=== PATIENT | male | born 1940 | race Caucasian/White ===

== ENCOUNTER 2016-09-28 08:14 | Observation (INO) | payer MEDICARE, OTHER ==
[2016-09-28] MEDS ORDERED: DIATRIZOATE MEGLU/DIATRIZO SOD 30 ML BTL PO ONE (09:03)
[2016-09-28] MEDS ORDERED: ONDANSETRON HCL/PF 2 MG/ML VIAL IV ONE ×2 (09:03→13:11)
[2016-09-28] MEDS ORDERED: KETOROLAC TROMETHAMINE 30 MG/ML VIAL IV ONE (09:03)
--- NOTE | 2016-09-28 09:09 | ERNOTE ---
Abdominal HPI - General Chief Complaint: Abdominal Pain Time Seen by Provider: 09/28/16 08:52 Source: patient Exam Limitations: no limitations - Immun/Allergies/Home Medications Immunizatons: IMMUNIZATION HX Immunizations Up to Date Yes History of Influenza Vaccine Yes Hx Pneumococcal Vaccination Yes Allergies/Adverse Reactions: Allergies Penicillins Allergy (Verified 09/28/16 08:38) Hives Home Medications: HOME MEDICATIONS NK [No Home Medication] 09/28/16 [Last Taken Unknown] - History of Present Illness Narrative: Patient started to have lower abdominal pain yesterday afternoon, the pain waxes and wanes, but never goes away. He describes it at burning, currently at 3 /10, max to 8/10, no aggravating or alleviating factors. He vomited twice, once yesterday and once this morning around 06:00, no po intake since, no diarrhea, small BM yesterday. He has no chronic medical problems, no prior abdominal surgeries Date (Duration): 09/27/16 Quality: burning Activities at Onset: none Modifying Factors - (Improves): Absent: lying down Modifying Factors - (Worsens): Absent: breathing, coughing, defecating, eating, movement, vomiting Associated Symptoms: Present: denies symptoms. Absent: chest pain, diarrhea- gross blood, fever/chills, shortness of breath Prior Abdominal Problems: Present: none Review of Systems - Review of Systems Constitutional: Absent: recent illness, fever ENT: Absent: sore throat Respiratory: Absent: shortness of breath, cough Cardiology: Absent: chest pain Gastrointestinal/Abdominal: Present: See HPI Genitourinary: Present: no symptoms reported. Absent: frequency, dysuria Musculoskeletal: Absent: back pain Neurological: Absent: headache - Patient's Past Medical History Patient History - Medical: No pertinent hx Patient History - Cardiac/Respiratory: No pertinent hx Patient History - Cancer: No Hx of Cancer Patient History - Surgical Procedures: T & A Patient History - Other: None - Social History Living Situations: home Abuse History: No History of abuse Psych History: No pertinent hx - Immunizations Immunizations Up to Date: Yes Hx Pneumococcal Vaccination: Yes History of Influenza Vaccine: Yes Physical Exam - Physical Exam General Appearance: Present: wd/wn, alert, no apparent distress Respiratory: Present: no respiratory distress, normal breath sounds, no accessory muscle use, lungs clear Cardiovascular/Chest: Present: regular rate, rhythm, no murmur Gastrointestinal/Abdominal: Present: normal bowel sounds, nondistended, soft, tenderness - RLQ, McBurney sign, Psoas sign. Absent: Obturator sign Male Genitals Exam: Present: normal genitalia, other - right sided inguinal hernia, non reducible and tender Back Exam: Present: no CVA tenderness Neurological Exam: Present: alert, oriented, normal mood/affect Skin Exam: Present: normal color, warm/dry ED Progress - Results and Orders Patient's Lab Results:: I have reviewed the patient's lab results. - Vital Signs Patient's Vital Signs:: I have reviewed the patient's vital signs. Vital Signs: Vital Signs 09/28/16 08:25 Temperature 36.9 C Pulse Rate 96 Respiratory 13 Rate Blood Pressure 158/94 O2 Sat by Pulse 93 Oximetry - CT/Ultrasound CT/Ultrasound Narrative: CT abdomen:appendix not visualized, right inguinal hernia with focal small bowel obstruction - Progress/Reassessment Chief Complaint: Abdominal Pain Progress Note-Subjective: 09/28/16 09:50 patient vomited initially with contrast, after zofran now tolerating po discussed lab results 09/28/16 12:[address] results with radiologist 09/28/16 12:15 discussed results with patient and family 09/28/16 12:[address] Mathew, will review images and see patient 09/28/16 13:13 patient is requesting pain medication now, 09/28/16 13:36 patient very comfortable after morphine 2mg Departure - Departure Clinical Impression: Incarcerated right inguinal hernia Disposition: [facility] Condition: Good
[2016-09-28 09:17] LABS: Hematocrit 49.4 % (42.0-52.0); Mean Cell Volume 89.2 fl (78-100); Mean Corpuscular Hemoglobin 30.7 pg (27-31); Mean Corpuscular Hgb Conc 34.4 g/dl (32-36); Mean Platelet Volume 9.5 fl (6.0-9.5); Neutrophil # 13.3 K/mm3 (1.3-6.0); Neutrophil % 84.8 % (42-75.0); Platelet Count 263 K/mm3 (150-450); Red Blood Count 5.54 M/mm3 (4.7-6.0); Red Cell Distribution Width 12.2 % (11.5-14.0); White Blood Count 15.7 K/mm3 (4.0-10.5)
[2016-09-28 09:29] LABS: Albumin * 4.5 gm/dl (3.4-5.0); Anion Gap 13.1 mmol/L (6.8-13.8); BUN/Creatinine Ratio 10.3 (9.0-21.6); Bilirubin, Total 0.7 mg/dL (0.0-1.1); Ca. Corrected For Albumin 9.2 mg/dL (8.4-10.2); Calcium * 9.9 mg/dL (7.9-10.9); Carbon Dioxide 27.9 mmol/L (24-32.6); Total Protein 8.2 gm/dL (6.2-8.2)
[2016-09-28] MEDS ORDERED: ONDANSETRON HCL/PF 2 MG/ML VIAL ONE ×2 (09:32→13:12)
[2016-09-28] MEDS ORDERED: KETOROLAC TROMETHAMINE 30 MG/ML VIAL ONE (09:33)
[2016-09-28] MEDS ORDERED: NORMAL SALINE 1,000 ML IV ONE (09:48)
[2016-09-28 11:06] LABS: Urine Bilirubin Negative (NEGATIVE); Urine Blood 25 /ul (NEGATIVE); Urine Ketone Negative (NEGATIVE); Urine Nitrite Negative (NEGATIVE); Urine Protein 30 mg/dL (NEGATIVE); Urine Specific Gravity 1.025 SP.GR. (1.005-1.030); Urine Urobilinogen Normal (NORMAL)
[2016-09-28 11:25] LABS: Urine Appearance Clear; Urine Bacteria TRACE; Urine Color Dark Yellow; Urine Mucus Many - 3+; Urine WBC 0-5 /hpf (0-5)
[2016-09-28] MEDS ORDERED: MORPHINE SULFATE 2 MG/ML DISP.SYRIN IV ONE (13:11)
[2016-09-28] MEDS ORDERED: MORPHINE SULFATE 2 MG/ML DISP.SYRIN ONE (13:12)
[2016-09-28] MEDS ORDERED: ceFAZolin SODIUM 2 GM in DEXTROSE 5 % IN WATER 50 ML IV PRN ×2 (13:22)
--- NOTE | 2016-09-28 13:37 | HP ---
Chief Complaint - Chief Complaint Date of Service: 09/28/16 Time of Service: 13:26 Chief Complaint: abdominal pain History of Present Illness: Started with lower abdominal pain yesterday with belching. Was evaluated in ER and found to have small bowel obstruction with incarcerated right inguinal hernia. - Patient's Past Medical History Patient History - Medical: No pertinent hx Patient History - Cardiac/Respiratory: No pertinent hx Patient History - Cancer: No Hx of Cancer Patient History - Surgical Procedures: T & A Patient History - Other: None - Family History Family History:: no untoward family reactions to anesthesia, no familial bleeding tendencies - Social History Living Situations: home Abuse History: No History of abuse Psych History: No pertinent hx - Immunizations Immunizations Up to Date: Yes Hx Pneumococcal Vaccination: Yes History of Influenza Vaccine: Yes Review Of Systems (GEN) - Review of Systems Generalized/Overall Review: Present: No Symptoms Reported EENTM: Present: No Symptoms Reported Respiratory: Present: No Symptoms Reported Cardiac: Present: No Symptoms Reported. Absent: Chest Pain, Edema, Palpitations Abdominal: Present: Nausea, Vomiting, Abdominal Pain Genitourinary: Present: No Symptoms Reported Musculoskeletal: Present: No Symptoms Reported Neurological: Present: No Symptoms Reported Skin: Present: No Symptoms Reported Endocrine: Present: No Symptoms Reported Immunizations: IMMUNIZATION HX Immunizations Up to Date Yes History of Influenza Vaccine Yes Hx Pneumococcal Vaccination Yes Allergies/Adverse Reactions: Allergies Allergy/AdvReac Type Severity Reaction Status Date / Time Penicillins Allergy Hives Verified 09/28/16 08:38 Home Medications: HOME MEDICATIONS NK [No Home Medication] 09/28/16 [Last Taken Unknown] Exam - Exam Vital Signs: Vital Signs - Last Taken Temp 36.9 C 09/28/16 08:25 Pulse 93 09/28/16 12:26 Resp 12 09/28/16 12:26 BP 171/96 09/28/16 12:26 Pulse Ox 100 09/28/16 12:26 Constitutional: Present: Alert, Oriented x3, Cooperative, Well nourished, Mild distress ENT Exam: Present: normal ENT inspection, hard of hearing Eye Exam: bilateral eye: normal inspection Neck: Present: full range of motion, normal inspection Back Exam: Present: no CVA tenderness Respiratory: Present: lungs clear, normal breath sounds Cardiovascular/Chest: Present: normal peripheral pulses, regular rate, rhythm Peripheral Pulses: carotid (R): 4+, carotid (L): 4+, dorsalis-pedis (R): 4+, dorsalis-pedis (L): 4+, radial (R): 4+, radial (L): 4+ Abdomen: Present: other - No abdominal tenderness. Incarcerated right inguinal hernia. Reducible left inguinal hernia Extremity: Present: normal range of motion, normal inspection, no pedal edema, no calf tenderness Skin Exam: Present: normal color Neurologic: Present: entry clerk II-XII nml as tested, normal cerebellar test, no motor/ sensory deficits Appearance: Present: appropriate appearance, appropriate insight, neat Eye contact: Present: cooperative, good eye contact, normal speech Thoughts: Present: normal thought pattern Diagnostic Studies: Abnormal Lab Results 09/28/16 09/28/16 09/28/16 Range/Units 09:10 09:10 10:59 WBC 15.7 H (4.0-10.5) K/mm3 Immature Gran # (Auto) 0.05 H (0.000-0.0310) K/mm3 Neutrophils % 84.8 H (42-75.0) % Lymphocytes % 7.4 L (20-51) % Neutrophils # 13.3 H (1.3-6.0) K/mm3 Lymphocytes # 1.2 L (1.5-3.5) k/mm3 Monocytes # 1.1 H (0.0-1.0) k/mm3 Sodium 143 H (132-142) mmol/L Plasma Sodium 143 H (130-142) mmol/L Random Glucose 118 H (70-110) mg/dL Urine Protein 30 H (NEGATIVE) mg/dL Urine Blood 25 H (NEGATIVE) /ul Urine RBC 5-10 H (0-5) /hpf Urine Mucus Many - 3+ H (NONE) Laboratory Results WBC 15.7 K/mm3 (4.0-10.5) H 09/28/16 09:10 RBC 5.54 M/mm3 (4.7-6.0) 09/28/16 09:10 Hgb 17.0 gm/dL (13.5-18.0) 09/28/16 09:10 Hct 49.4 % (42.0-52.0) 09/28/16 09:10 MCV 89.2 fl (78-100) 09/28/16 09:10 MCH 30.7 pg (27-31) 09/28/16 09:10 MCHC 34.4 g/dl (32-36) 09/28/16 09:10 RDW 12.2 % (11.5-14.0) 09/28/16 09:10 Plt Count 263 K/mm3 (150-450) 09/28/16 09:10 MPV 9.5 fl (6.0-9.5) 09/28/16 09:10 Immature Gran % (Auto) 0.30 % (0.001-0.429) 09/28/16 09:10 Immature Gran # (Auto) 0.05 K/mm3 (0.000-0.0310) H 09/28/16 09:10 Neutrophils % 84.8 % (42-75.0) H 09/28/16 09:10 Lymphocytes % 7.4 % (20-51) L 09/28/16 09:10 Monocytes % 6.7 % (0.0-9) 09/28/16 09:10 Eosinophils % 0.4 % (0.0-3.0) 09/28/16 09:10 Basophils % 0.4 % (0.0-1.0) 09/28/16 09:10 Nucleated RBC % 0.0 k/mm3 (0-1) 09/28/16 09:10 Neutrophils # 13.3 K/mm3 (1.3-6.0) H 09/28/16 09:10 Lymphocytes # 1.2 k/mm3 (1.5-3.5) L 09/28/16 09:10 Monocytes # 1.1 k/mm3 (0.0-1.0) H 09/28/16 09:10 Eosinophils # 0.1 k/mm3 (0.0-0.7) 09/28/16 09:10 Absolute Basophils 0.1 k/mm3 (0.0-0.1) 09/28/16 09:10 Sodium 143 mmol/L (132-142) H 09/28/16 09:10 Plasma Sodium 143 mmol/L (130-142) H 09/28/16 09:10 Potassium 4.0 mmol/L (3.4-4.6) 09/28/16 09:10 Chloride 106 mmol/L (97-106) 09/28/16 09:10 Carbon Dioxide 27.9 mmol/L (24-32.6) 09/28/16 09:10 Anion Gap 13.1 mmol/L (6.8-13.8) 09/28/16 09:10 BUN 12 mg/dL (6-23) 09/28/16 09:10 Creatinine 1.16 mg/dL (0.4-1.4) 09/28/16 09:10 Est GFR (Non-Af Amer) 65 mL/min (60-130) 09/28/16 09:10 BUN/Creatinine Ratio 10.3 (9.0-21.6) 09/28/16 09:10 Random Glucose 118 mg/dL (70-110) H 09/28/16 09:10 Calcium 9.9 mg/dL (7.9-10.9) 09/28/16 09:10 Calcium Adj for Albumin 9.2 mg/dL (8.4-10.2) 09/28/16 09:10 Total Bilirubin 0.7 mg/dL (0.0-1.1) 09/28/16 09:10 AST 23 U/L (0-48) 09/28/16 09:10 ALT 22 U/L (19-67) 09/28/16 09:10 Alkaline Phosphatase 65 U/L (50-170) 09/28/16 09:10 Total Protein 8.2 gm/dL (6.2-8.2) 09/28/16 09:10 Albumin 4.5 gm/dl (3.4-5.0) 09/28/16 09:10 Amylase 61 U/L (25-115) 09/28/16 09:10 Lipase 114 U/L (73-393) 09/28/16 09:10 Urine Color Dark yellow 09/28/16 10:59 Urine Appearance Clear 09/28/16 10:59 Urine pH 6.0 pH (5.0-7.0) 09/28/16 10:59 Ur Specific [place] 1.025 SP.GR. (1.005-1.030) 09/28/16 10:59 Urine Protein 30 mg/dL (NEGATIVE) H 09/28/16 10:59 Urine Glucose (UA) Negative mg/dL (NEGATIVE) 09/28/16 10:59 Urine Ketones Negative mg/dL (NEGATIVE) 09/28/16 10:59 Urine Blood 25 /ul (NEGATIVE) H 09/28/16 10:59 Urine Nitrate Negative (NEGATIVE) 09/28/16 10:59 Urine Bilirubin Negative mg/dl (NEGATIVE) 09/28/16 10:59 Prot Sulfosalicylic Acd 1+ mg/dL (0) 09/28/16 10:59 Urine Urobilinogen Normal EU/dl (NORMAL) 09/28/16 10:59 Ur Leukocyte Esterase Negative /ul (NEGATIVE) 09/28/16 10:59 Urine RBC 5-10 /hpf (0-5) H 09/28/16 10:59 Urine WBC 0-5 /hpf (0-5) 09/28/16 10:59 Ur Epithelial Cells Trace /hpf (0-5) 09/28/16 10:59 Urine Bacteria Trace (NONE) 09/28/16 10:59 Urine Mucus Many - 3+ (NONE) H 09/28/16 10:59 Urine Culture Comments No culture indicated 09/28/16 10:59 CT scan shows small bowel obstruction with transition in right inguinal hernia. Assessment/Plan - Assessment/Plan (1) Incarcerated right inguinal hernia Assessment: Pamphlet on hernia surgery reviewed and given. The options available and recommended option of repair explained. Risks and possible complications explained as well as the expected post-op course explained. Questions answered and informed consent for reduction and repair of incarcerated right inguinal hernia obtained. Problem: Acute
[2016-09-28] MEDS ORDERED: RINGERS SOLUTION,LACTATED 1,000 ML IV ONE ×2 (14:20→15:19)
[2016-09-28] MEDS ORDERED: BUPIVACAINE HCL/EPINEPHRINE 50 ML VIAL IJ ONE ×2 (14:45)
[2016-09-28] MEDS ORDERED: MORPHINE SULFATE 4 MG/ML SYRG IV PRN (17:01)
[2016-09-28] MEDS ORDERED: RINGERS SOLUTION,LACTATED 1,000 ML IV PRN (17:01)
[2016-09-28] MEDS ORDERED: ONDANSETRON HCL/PF 2 MG/ML VIAL IV PRN (17:01)
--- NOTE | 2016-09-28 17:23 | OR ---
Operative Report - Dictated Report Narrative: Date of operation: 09/28/2016 Preoperative diagnosis: Incarcerated right inguinal hernia Postoperative diagnosis: Incarcerated sliding indirect right inguinal hernia Operation: Reduction of incarcerated right inguinal hernia with mesh plug and patch repair Surgeon: JAVIER Mathew MD Anesthesia: Gen. endotracheal Yomi Meade CRNA Indications for procedure: The patient is a 76-year-old male presented to the emergency room with a one-day history of lower abdominal pain and nausea. CT scan of the abdomen and pelvis revealed small bowel obstruction from a right inguinal hernia. The hernia is not reducible. He is brought for repair Findings: Incarcerated sliding indirect right inguinal hernia, successfully reduced. Narrative of procedure: The patient was identified preoperatively, the surgical site was marked, and prior to the administration of anesthetic a multidisciplinary timeout was observed. The patient was placed supine, SCDs were applied, and 2 g of intravenous Ancef administered. Gen. endotracheal anesthetic was administered. A Haile catheter was placed and left to gravity drainage. The patient's abdomen and genitalia were prepped with Betadine solution and the right groin and lower midline was isolated with 4 sterile towels. The remainder the patient was covered with a sterile disposable drape. A transverse skin incision was made over the midportion of the right inguinal canal. Dissection was carried through subcutaneous tissue with electrocautery until the fascia of the external oblique aponeurosis was encountered. This was swept clean of soft tissue attachments down to the incarcerated hernia at the external ring. The aponeurosis was incised in the direction of its fibers down to and including the external inguinal ring at the incarcerated hernia. The ilioinguinal nerve was identified and protected throughout the procedure. Cord structures were encircled at the pubic tubercle, and a [place] drain placed for traction. Inspection of the inguinal floor revealed it to be sound out to the inferior epigastric vessels. Inspection of the cord revealed incarcerated hernia contents adjacent to the internal ring. The herniated material appeared viable. The herniated material was dissected free circumferentially back to the internal inguinal ring. During this the herniated contents reduced with exception of a small sliding hernia component. There was no discernible sac, however this material appeared viable and was easily reduced back into the peritoneal cavity. A Bard mesh plug was placed in the inguinal floor adjacent to the cord and secured circumferentially to the pubic tubercle, conjoined tendon, and along the shelving border of the inguinal ligament with interrupted sutures of 0 Ethibond. An additional suture was placed between the conjoined tendon and shelving border of the inguinal ligament just medial to the cord structures to incorporate the lateral border of the plug. A tailored mesh patch was placed in the inguinal floor and secured circumferentially to the pubic tubercle, along the conjoined tendon, and along the shelving border of the inguinal ligament with interrupted sutures of 0 Ethibond. The wings of the patch were wrapped around the cord structures and secured laterally with additional interrupted sutures of 0 Ethibond. The new internal inguinal ring was found to be of sufficient caliber to admit cord structures without undue constriction. The wound was inspected for hemostasis which appeared complete. The cord structures and ilioinguinal nerve were returned to an anatomic position. After receiving a correct sponge needle and instrument count attention was turned to closing the wound. The external oblique aponeurosis was approximated with a running suture of 2-0 Vicryl. Subcutaneous tissues were approximated with interrupted sutures of 2-0 chromic. The skin was secured with a running subcuticular suture of 4-0 Vicryl. The operative site was washed and dried. A dressing of Dermabond, folded 4 x 4, and Medipore tape was applied. The scrotum was checked to ensure that the testicles were in an anatomic position. The Haile catheter was removed. The operative procedure was terminated at this point. The patient tolerated the anesthetic and procedure well without complication. There was no measurable blood loss. No specimen was submitted. 0.5% Marcaine with epinephrine was used for local anesthetic infiltration. The patient was transferred to the recovery room awake , extubated, and in stable condition. Reviewed and electronically signed
[2016-09-28] MEDS: oxyCODONE HCL/ACETAMINOPHEN 1 TAB TABLET PO PRN (22:18)
[2016-09-29] MEDS ORDERED: MORPHINE SULFATE 2 MG/ML DISP.SYRIN IV PRN (07:09)
[2016-09-29] MEDS: oxyCODONE HCL/ACETAMINOPHEN 1 TAB TABLET PO PRN (11:25)
[2016-09-29] MEDS ORDERED: NORMAL SALINE 1,000 ML IV PRN (11:46)
[2016-09-29 11:50] LABS: Hematocrit 49.9 % (42.0-52.0); Hemoglobin 16.4 gm/dL (13.5-18.0); Mean Cell Volume 92.4 fl (78-100); Mean Corpuscular Hemoglobin 30.4 pg (27-31); Mean Corpuscular Hgb Conc 32.9 g/dl (32-36); Mean Platelet Volume 9.9 fl (6.0-9.5); Platelet Count 239 K/mm3 (150-450); Red Cell Distribution Width 12.7 % (11.5-14.0); White Blood Count 18.6 K/mm3 (4.0-10.5)
[2016-09-29 11:56] LABS: Total Cells Counted 100
--- NOTE | 2016-09-29 11:57 | CONS ---
- Reason for consultation (1) Atrial flutter with rapid ventricular response Date of Service: 09/29/16 HPI - General Date of Service: 09/29/16 Narrative: Fanny is a 76 yo male that underwent right inguinal hernia repair 09/28/16. He was reportedly doing well and had planned for home discharge today. On routine vital checks per nursing he was found to have a heart rate with 150. He was placed on telemetry and ECG was obtained which showed atrial flutter with rapid ventricular response of 150. This is new onset, he has no cardiac past medical history. He denies any symptoms. Specifically denies chest pain, shortness of breath, or palpitations. Source: patient, family Exam Limitations: no limitations - History of Present Illness Allergies/Adverse Reactions: Allergies Penicillins Allergy (Verified 09/28/16 08:38) Hives Home Medications: Home Medications Medication Instructions Recorded Last Taken NK [No Home Medication] 09/28/16 Unknown - Patient's Past Medical History Patient History - Medical: No pertinent hx Patient History - Cardiac/Respiratory: No pertinent hx Patient History - Cancer: No Hx of Cancer Patient History - Surgical Procedures: Colonoscopy, T & A, Hernia Repair Patient History - Other: None - Family History Family History:: no untoward family reactions to anesthesia, no familial bleeding tendencies - Family History Mother Family History - Medical: Father Family History - Medical: - Social History Living Situations: spouse Abuse History: No History of abuse Psych History: No pertinent hx Smoking Status: Never smoker Have you smoked in the past 12 months: No Do you dip or chew tobacco: No Patient requests Smoking Cessation Consult: No Initiate information on Smoking Cessation: No Alcohol Use: none Drug Use: none - Immunizations Immunizations Up to Date: Yes Hx Pneumococcal Vaccination: Yes History of Influenza Vaccine: Yes Medications - Medications Current Medications: Current Medications Cefazolin Sodium 2 gm/ (Dextrose/Water) 50 mls @ 100 mls/hr IV PREOP PRN; Protocol PRN Reason: prophylaxis Stop: 10/28/16 13:23 Last Admin: 09/28/16 14:30 Dose: 50 mls Oxycodone/Acetaminophen (Percocet 5 Mg/325 Mg) 2 tab PO Q4H PRN PRN Reason: Moderate Pain Stop: 10/28/16 17:02 Last Admin: 09/29/16 11:25 Dose: 2 tab Review of Systems - Review of Systems Generalized/Overall Review: Present: No Symptoms Reported EENTM: Present: No Symptoms Reported Respiratory: Present: No Symptoms Reported Cardiac: Present: No Symptoms Reported Abdominal: Present: Abdominal Pain - at incision site Genitourinary: Present: No Symptoms Reported Musculoskeletal: Present: No Symptoms Reported Neurological: Present: No Symptoms Reported Physical Examination - Exam Vital Signs: Vital Signs - Last Taken Temp 36.8 C 09/29/16 11:11 Pulse 151 H 09/29/16 11:11 Resp 20 09/29/16 11:11 BP 133/67 09/29/16 11:11 Pulse Ox 95 09/29/16 11:11 O2 Oxygen Delivery Method Room Air Constitutional: Present: Alert, Oriented x3, Cooperative ENT Exam: Present: hearing grossly normal Eye Exam: bilateral eye: normal inspection Respiratory: Present: lungs clear, normal breath sounds, no respiratory distress Cardiovascular/Chest: Present: tachycardia - Tachycardia to a degree that regularity is unable to be determined by auscultation Appearance: Present: appropriate appearance, appropriate insight Eye contact: Present: cooperative, good eye contact, normal speech Thoughts: Present: normal thought pattern, no apparent hallucination - Assessments/Findings (1) Atrial flutter with rapid ventricular response Diagnosis(s): New onset atrial flutter with rapid ventricular response. Will give Diltiazem 20mg IV x once now with NS bolus of 500ml then saline lock. Will evaluate labs with CBC, CMP, BNP, Troponin, and TSH. Will obtain chest xray. Will monitor response of diltiazem on telemetry. Problem: Acute (2) Incarcerated right inguinal hernia Diagnosis(s): POD #1 - Doing well from a surgical standpoint. Problem: Acute
[2016-09-29] MEDS ORDERED: DILTIAZEM HCL 5 MG/ML VIAL IV ONE (12:00)
[2016-09-29 12:08] LABS: Neutrophil # 15.6 K/mm3 (1.3-6.0)
[2016-09-29 12:16] LABS: Lymphocyte 8 % (20-51); Monocyte 6 % (0-9); Neutrophil 86 % (42-75)
[2016-09-29 12:17] LABS: Platelet Estimate Normal (NORMAL); RBC Morphology Normal (NORMAL)
[2016-09-29 12:21] LABS: Albumin * 3.4 gm/dl (3.4-5.0); Anion Gap 10.3 mmol/L (6.8-13.8); BUN/Creatinine Ratio 10.9 (9.0-21.6); Bilirubin, Total 1.1 mg/dL (0.0-1.1); Ca. Corrected For Albumin 8.9 mg/dL (8.4-10.2); Calcium * 8.7 mg/dL (7.9-10.9); Carbon Dioxide 29.7 mmol/L (24-32.6); TSH * 1.384 uIU/mL (0.358-3.74); Total Protein 7.1 gm/dL (6.2-8.2)
[2016-09-30 06:46] VITALS: BP 141/63
--- NOTE | 2016-09-30 07:55 | DS ---
(1) Incarcerated right inguinal hernia Problem: Resolved Description of Stay: Underwent reduction and repair of incarcerated right inguinal hernia (Bard mesh plug/patch). Had return of bowel function and resolution of N/V Had episode of atrial flutter with rapid ventricular response (P 150's) which was asymptomatic and responded to single dose of IV Diltiazem. Troponins were negative. Was continued in observation on telemetry for this. By morning of 09/30/16 he was tolerating regular diet, stooling. He remained in NSR. His pain was controlled with po Percocet. Incision healing well. Ambulating independently. Procedures Performed: see notes below - reduction and repair of incarcerated right inguinal hernia Discharge Disposition: Home self care Disposition: Home self-care Condition: Good Discharge Activity: Activity as tolerated, No Lifting Discharge Diet: General/regular food Problem Oriented Discharge Instructions to Patient/Family: Inguinal Hernia, Adult, [id number] Additional Patient Instructions (free text): He is to follow up with the [facility] physician in [place] Prescriptions (Any new or edited meds): oxyCODONE HCL/ACETAMINOPHEN [Percocet 5 MG/325 MG] 2 tab PO Q4H PRN #30 tablet PRN Reason: Moderate Pain Complete Home Medications List: Complete Home Medication List: oxyCODONE HCL/ACETAMINOPHEN [Percocet 5 MG/325 MG] 2 tab PO Q4H PRN #30 tablet 09/30/16
== END 2016-09-30 09:05 | disposition home or self-care (01) ==
LOC: ER 08:14 → AMB 13:14 → MS 17:15
PROVIDERS: ADMIT Surgery; ATTEND Surgery
PROC: 0YU50JZ Supplement Right Inguinal Region with Synthetic Substitute, Open Approach (ICD-10-PCS; principal; 2016-09-28 13:45)
DX: K40.30 Unilateral inguinal hernia, with obstruction, without gangrene, not specified as recurrent (principal); I48.92 Unspecified atrial flutter
CPT/HCPCS: 36415; 49507; 71010; 74177; 80053; 81001; 82150; 83690; 83880; 84443; 84484; 85007; 85025; 93005; 96374; 96375; 96376; 99284; G0378; J2405